=== PATIENT | female | born 1950 | race Two or more races ===

== ENCOUNTER 2016-10-21 08:36 | Outpatient (RCR) | payer OTHER | END 2016-11-11 | disposition home or self-care (01) | LOC: PTY 08:36 | DX: M75.41 Impingement syndrome of right shoulder (principal); M67.921 Unspecified disorder of synovium and tendon, right upper arm; M17.0 Bilateral primary osteoarthritis of knee; M51.36 Other intervertebral disc degeneration, lumbar region; M53.86 Other specified dorsopathies, lumbar region | CPT/HCPCS: 97110; 97140; G0283 ==

== ENCOUNTER 2017-07-13 09:15 | Outpatient (RCR) | payer OTHER | END 2017-07-14 | disposition home or self-care (01) | LOC: PTY 09:15 | DX: Z96.651 Presence of right artificial knee joint (principal) | CPT/HCPCS: 97110; 97140; 97162; G0283 ==

== ENCOUNTER → 2017-08-13 | Outpatient (RCR) | payer OTHER | END | disposition home or self-care (01) | LOC: PTY 07-16 09:06 | DX: M25.561 Pain in right knee (principal); Z96.651 Presence of right artificial knee joint | CPT/HCPCS: 97110; 97140; G0283 ==

== ENCOUNTER 2017-09-10 09:15 | Outpatient (RCR) | payer OTHER | END 2017-09-13 | disposition home or self-care (01) | LOC: PTY 09:15 | DX: M75.41 Impingement syndrome of right shoulder (principal); M67.921 Unspecified disorder of synovium and tendon, right upper arm; M17.0 Bilateral primary osteoarthritis of knee; Z96.651 Presence of right artificial knee joint | CPT/HCPCS: 97110; 97140; G0283 ==

== ENCOUNTER 2017-09-24 08:30 | Outpatient (RCR) | payer OTHER | END 2017-10-14 | disposition home or self-care (01) | LOC: PTY 08:30 | DX: R26.9 Unspecified abnormalities of gait and mobility (principal); Z96.651 Presence of right artificial knee joint | CPT/HCPCS: 97110; 97140; G0283 ==

== ENCOUNTER 2017-10-19 08:23 | Outpatient (RCR) | payer OTHER | END 2017-11-11 | disposition home or self-care (01) | LOC: PTY 08:23 | DX: R26.9 Unspecified abnormalities of gait and mobility (principal); Z96.651 Presence of right artificial knee joint; M25.561 Pain in right knee ==

== ENCOUNTER 2017-11-12 09:15 | Outpatient (RCR) | payer OTHER | END 2017-12-12 | disposition home or self-care (01) | LOC: PTY 09:15 | DX: R26.89 Other abnormalities of gait and mobility (principal); Z96.651 Presence of right artificial knee joint; M25.561 Pain in right knee ==